=== PATIENT | male | born 1960 | race Caucasian/White ===

== ENCOUNTER 2021-10-11 10:48 | Day surgery (SDC) | payer OTHER ==
[~2021-10-11] VITALS: Ht 167.6 cm; Wt 77.1 kg
[~2021-10-11 10:48] MED LIST: 24 HOUR ALLER15.8 ML; AFLURIA 2045 MCG/014 IM; CARDURA1 MG PO; CIALIS10 MG PO; ELOCON15 G1 TOP; METHOCARBAMOL500 MG PO; PRILOSEC OTC20 MG PO; SINGULAIR10 MG PO; SINGULAIR5 MG PO; SUDAFED 12 HOU120 MG PO; ULTRAM50 MG PO; ZYRTEC10 MG PO
--- NOTE | 2021-10-11 13:24 | NUR ---
10/11/21 1324 Cheyenne Bullard 1321-PATIENT ARRIVED TO PACU ON 2L NC RR EVEN. PATIENT AWAKE DENIES PAIN OR NAUSEA. ABDOMEN SOFT. IVF INFUSING. PATIENT LAYING LEFT LATERAL.
--- NOTE | 2021-10-13 12:43 | OR ---
[facility] [address], [place] [address] Signed DATE OF OPERATION: 10/11/2021 SURGEON: Thony Zarate MD PREOPERATIVE DIAGNOSES: 1. History of polyps 2017. 2. Family history of colon cancer (father age 70). POSTOPERATIVE DIAGNOSES: 1. Sigmoid diverticulosis. 2. Mild proctitis. 3. Polyps x2 (right colon and left colon). PROCEDURE: Total colonoscopy to cecum with cold snare polypectomy x1 and cold morcellation polypectomy x1 and rectal biopsy x1. ANESTHESIA: Intravenous sedation, fentanyl 100 mcg and versed 5.5 mg. INDICATIONS: This 61-year-old white man is a patient of Douglas Jameson, and known to me from the past, having undergone colonoscopy in 2017. He had two tubular adenomas resected. He has family history of colon cancer in his father at age 70. He is symptom-free, having no bleeding, diarrhea, or constipation at this time. He is admitted to undergo colonoscopy. He understands the risks of bleeding, infection, and perforation. Understanding this, he wished to proceed. FINDINGS: The prep was excellent. Complete colonoscopy was undertaken to the cecum without question. Diverticula were noted in the sigmoid and left colon. He had two small adenomatous polyps, one in the proximal ascending colon, the other at 40 cm in the left colon. There was mild proctitis. Biopsies were obtained to affirm this. DESCRIPTION OF PROCEDURE: The patient was brought to the endoscopy suite and placed in lateral decubitus position given intravenous sedation to the point of slurred speech and nystagmus. Digital rectal examination was normal. Full cardiopulmonary monitoring was maintained. An Olympus video colonoscope was passed into the rectum and manipulated throughout the colon noting numerous diverticula of the sigmoid and left colon. The scope was ultimately advanced Electronically Signed By: THONY ZARATE MD 10/13/21 1243 PATIENT NAME: ENA RASCON OPERATIVE REPORT DATE OF : 56 REPORT #: [id number] PHYSICIAN: THONY ZARATE MD PCP: DOUGLAS JAMESON REPORT IS CONFIDENTIAL AND NOT TO BE RELEASED WITHOUT AUTHORIZATION [facility] [address], [place] [address] Signed to the cecum. The ileocecal valve and appendiceal orifice were normal. The scope was withdrawn. An adenomatous-appearing polyp about 5-6 mm was noted in the proximal ascending colon. This was excised with cold snare technique completely. The specimen was passed for pathology. The scope was further withdrawn. Examination showed no sign of abnormality until approximately 40 cm from the anal verge, where another adenomatous appearing polyp was noted, this was excised with cold morcellation technique entirely. Further withdrawal showed no other abnormality other than diverticulosis. Retroflexed view of the rectum showed mild proctitis. Biopsies were obtained. The scope was removed. The patient was taken to the recovery room in good condition. CONCLUDING DIAGNOSES: 1. Polyps x2; right colon and left colon. 2. Diverticulosis. 3. Mild proctitis. PLAN: Recommend repeat colonoscopy in 5 years or sooner if clinically indicated. He will return to the ongoing care of PATT Robles. MD HONG Ordonez/FAYEL /[id number] cc: PATT Robles Copies: DOUGLAS JAMESON ~ Electronically Signed By: THONY ZARATE MD 10/13/21 1243 PATIENT NAME: ENA RASCON OPERATIVE REPORT DATE OF : 56 REPORT #: [id number] PHYSICIAN: THONY ZARATE MD PCP: DOUGLAS JAMESON REPORT IS CONFIDENTIAL AND NOT TO BE RELEASED WITHOUT AUTHORIZATION
--- NOTE | 2021-10-13 19:48 | PATH ---
[facility] [address], [place] [address] Signed SPECIMEN(S): A ASCENDING/RIGHT COLON POLYP SPECIMEN(S): B DESCENDING/LEFT COLON POLYP AT 40 CM SPECIMEN(S): C RECTAL BIOPSY SPECIMEN SOURCE: A. ASCENDING/RIGHT COLON POLYP B. DESCENDING/LEFT COLON POLYP AT 40 CM C. RECTAL BIOPSY CLINICAL HISTORY: Colonoscopy. History of polyps/colon polyps, mild proctitis. FINAL PATHOLOGIC DIAGNOSIS: A. Ascending/right colon polyp, biopsy: - Tubular adenoma. - Negative for high-grade dysplasia and malignancy. B. Descending/left colon polyp at 40 cm, biopsy: - Portions of tubular adenoma; 3 of 4 pieces. - Negative for high-grade dysplasia and malignancy. - Portion of unremarkable colonic mucosa; 1 of 4 pieces. C. Rectum, biopsy: - Colonic mucosa with normal glandular architecture. - Both pieces contain benign lymphoid aggregates. - One piece with extravasated blood in the lamina propria, without accompanying mucosal injury. - Negative for inflammation, dysplasia, and malignancy. SDL:mfr:C2NR MICROSCOPIC EXAMINATION: Histologic sections of all submitted blocks are examined by light microscopy. These findings, together with the gross examination, support the pathologic diagnosis. GROSS DESCRIPTION: Three specimens are received in three containers, labeled "Tabitha Rascon." A. The specimen, labeled "Capri, C, #1," and designated on the requisition "ascending/right polypectomy," is received in formalin and consists of one parikh soft tissue fragment that measures 0.3 cm in greatest dimension. The specimen is entirely submitted in cassette (A1). B. The specimen, labeled "Capri C, #2," and designated on the requisition "descending/left polypectomy," is received in formalin and consists of four parikh PATIENT NAME: ENA RASCON PATHOLOGY DATE OF : 56 REPORT #: [id number] PHYSICIAN: ANITA MAURER PCP: DOUGLAS DUGAN REPORT IS CONFIDENTIAL AND NOT TO BE RELEASED WITHOUT AUTHORIZATION [facility] [address], [place] [address] Signed soft tissue fragments that measure 0.2-0.4 cm in greatest dimension. The specimen is entirely submitted in cassette (B1). C. The specimen, labeled "Tabitha Rascon, #3," and designated on the requisition "rectum biopsy," is received in formalin and consists of two parikh soft tissue fragments that measure 0.3 and 0.4 cm in greatest dimension. The specimen is entirely submitted in cassette (C1). FB (under the direct supervision of a pathologist) The Gross Description was prepared using a voice recognition system. The report was reviewed for accuracy; however, sound-alike word errors, addition and/or deletions may occur. If there is any question about this report, please contact Client Services. PERFORMING LABORATORY: The technical component was performed by [facility], [address] [place] [id number] (CLIA# [id number]). Professional interpretation was performed by [facility], [address] [place] [id number] (CLIA#: [id number]). Diagnostician: Franchesca Millan MD Pathologist Electronically Signed 10/13/2021 Copies: ~ PATIENT NAME: ENA RASCON PATHOLOGY DATE OF : 56 REPORT #: [id number] PHYSICIAN: ANITA PATHOLOGY PCP: DOUGLAS DUGAN REPORT IS CONFIDENTIAL AND NOT TO BE RELEASED WITHOUT AUTHORIZATION
== END 2021-10-11 13:55 | disposition home or self-care (01) ==
LOC: OPS 10:48 → DS 10:54 → OPS 12:00
PROVIDERS: ATTEND Surgery
PROC: 0DBP8ZX Excision of Rectum, Via Natural or Artificial Opening Endoscopic, Diagnostic (ICD-10-PCS; 2021-10-11)
PROC: 0DBK8ZX Excision of Ascending Colon, Via Natural or Artificial Opening Endoscopic, Diagnostic (ICD-10-PCS; principal; 2021-10-11 12:00)
DX: Z12.11 Encounter for screening for malignant neoplasm of colon (principal); D12.2 Benign neoplasm of ascending colon; D12.4 Benign neoplasm of descending colon; Z80.0 Family history of malignant neoplasm of digestive organs; Z86.010 Personal history of colon polyps; K57.30 Diverticulosis of large intestine without perforation or abscess without bleeding; K62.89 Other specified diseases of anus and rectum
CPT/HCPCS: 99153; G0500; J2250; J3010; J7121